=== PATIENT | female | born 1935 | race Caucasian/White ===

== ENCOUNTER 2017-07-28 08:48 | Inpatient (IN) | payer MEDICARE, OTHER ==
[~2017-07-28] VITALS: Ht 170.2 cm; Wt 81.6 kg
--- NOTE | 2017-07-28 09:40 | DIREP ---
PROCEDURE:CHEST 1 VIEW COMPARISON:None. INDICATIONS:medical clearance FOR [facility] FINDINGS: LUNGS/PLEURA:No significant pulmonary parenchymal abnormalities. No effusions. VASCULATURE:Normal. Unremarkable pulmonary vasculature. CARDIAC:Normal. No cardiac silhouette abnormality or cardiomegaly. MEDIASTINUM:Normal. No visible mass or adenopathy. BONES:There are remote and/or healing fractures of several right lower ribs. A dorsal column stimulator is seen with the tip in the midline of the mid thoracic spine. OTHER:Negative. CONCLUSION:No active or acute cardiopulmonary disease is seen. Dictated by: Ralph Harp M.D. on 07/28/2017 at 09:38 AM
[2017-07-28 09:44] LABS: BASOPHIL % 0.3 % (0.0-0.2); EOSINOPHIL # 0.6 10^3/uL (0.0-0.2); EOSINOPHIL % 8.4 % (0.0-5.0); HEMOGLOBIN 12.5 g/dL (12.0-15.0); LYMPHOCYTES # 1.3 10^3/uL (1.0-4.8); LYMPHOCYTES % 17.2 % (24.0-44.0); MEAN CELL HGB 26.9 pg (26-34); MEAN CORP VOLUME 89.7 fL (78-100); MONOCYTES # 0.6 10^3/uL (0.3-0.8); RED CELL DISTRIBUTION WIDTH 14.9 % (11.5-14.5); WHITE BLOOD CELL 7.6 10^3/uL (4.5-11.0)
--- NOTE | 2017-07-28 09:46 | PCM.EKG ---
[facility] Test Date: 2017-07-28 Test Time: 09:46:53 Pat Name: MIRI GUTIERREZ Department: Room: 212 Gender: F Magnetic Observer: AUBREY : 1935 Requested By: MOISÉS JUNIOR Order Number: [id number] Reading MD: Moisés JUNIOR Measurements Intervals [place] Rate: 90 P: 61 TN: 124 QRS: 60 QRSD: 76 T: 57 QT: 356 QTc: 435 Interpretive Statements Sinus rhythm with occasional premature ventricular complexes Otherwise normal ECG No previous ECG available for comparison Electronically Signed On 07-29-2017 5:55:29 CDT by Moisés JUNIOR Please click the below link to view image of tracing.
[2017-07-28] MEDS ORDERED: HALDOL ONE (09:47)
[2017-07-28] MEDS ORDERED: HALDOL IV STA (09:49)
[2017-07-28] MEDS ORDERED: ATIVAN IV STA (09:49)
[2017-07-28] MEDS ORDERED: ATIVAN ONE ×2 (09:49→20:03)
[2017-07-28] MEDS ORDERED: ATIVAN IM STA ×2 (09:55→10:41)
[2017-07-28] MEDS ORDERED: HALDOL IM STA ×2 (09:55→10:41)
--- NOTE | 2017-07-28 10:16 | ER.PDOC ---
General Chief Complaint: Medical Clearance Stated Complaint: MEDICAL CLEARANCE Time seen by MD: 10:14 Source: halfway records Exam Limitations: clinical condition History of Present Illness Initial Comments Medical clearance to go to [facility] for Depression and Psychosis Severity: moderate Associated Symptoms: Depressed, Agitated Allergies: Coded Allergies: Penicillins (Verified Allergy, Intermediate, rash, 07/28/17) Sulfa (Sulfonamide Antibiotics) (Verified Allergy, Intermediate, rash, ) Past Medical History Medical History: thyroid disease Social History Alcohol Use: none Drug Use: none Review of Systems Constitutional: no symptoms reported EENTM: no symptoms reported Respiratory: no symptoms reported Cardiovascular: no symptoms reported Gastrointestinal: no symptoms reported Psychiatric/Neurological: see HPI All Other Systems: Reviewed and Negative Physical Exam General Appearance: No acute distress, Alert EENT: No nystagmus, PERRLA, EOM's intact, NML ENT inspection, Pharynx nml, NML gag reflex Neck: Non-Tender, Full Range of Motion, Supple, Normal Inspection Respiratory: chest non-tender, lungs clear, normal breath sounds, no respiratory distress, no accessory muscle use Cardiovascular: Normal Peripheral Pulses, Regular Rate, Rhythm, No Edema, No Gallop, No JVD, No Murmur Gastrointestinal: Normal Bowel Sounds, No Organomegaly, No Pulsatile Mass, Non Tender, Soft Extremities: Non-Tender, Normal Range of Motion, No Evidence of Trauma, No Edema Neurological/Psychiatric: Alert, Depressed Affect Appearance/Memory/Insight: Appropriate Appearance Behavior/Eye Contact/Speech: Refused to Answer, Belligerent (and combative), Uncooperative Thoughts/Hallucinations: Normal Thought Pattern Skin: Normal Color Results/Orders Results/Orders Laboratory Tests Test 07/28/17 09:38 White Blood Count 7.6 10^3/uL (4.5-11.0) Red Blood Count 4.64 10^6/uL (4.00-5.20) Hemoglobin 12.5 g/dL (12.0-15.0) Hematocrit 41.6 % (36.0-46.0) Mean Corpuscular Volume 89.7 fL (78-100) Mean Corpuscular Hemoglobin 26.9 pg (26-34) Mean Corpuscular Hemoglobin Concent 30.0 g/dL (33-37) Red Cell Distribution Width 14.9 % (11.5-14.5) Platelet Count 361 10^3/uL (150-400) Mean Platelet Volume 10.0 fL (7.8-11.0) Neutrophils (%) (Auto) 66.0 % (41.0-85.0) Lymphocytes (%) (Auto) 17.2 % (24.0-44.0) Monocytes (%) (Auto) 8.0 % (5.0-12.0) Neutrophils # (Auto) 5.0 10^3/uL (1.8-7.7) Lymphocytes # (Auto) 1.3 10^3/uL (1.0-4.8) Monocytes # (Auto) 0.6 10^3/uL (0.3-0.8) Absolute Immature Granulocyte (auto 0.01 10^3 u/L (0-2) Eosinophils % 8.4 % (0.0-5.0) Basophils % 0.3 % (0.0-0.2) Basophils # 0.0 10^3/uL (0.0-0.1) Eosinophil Count 0.6 10^3/uL (0.0-0.2) Prothrombin Time 11.3 SEC (9.8-11.9) Prothrombin Time INR (Non-Therap) 1.1 Activated Partial Thromboplast Time 44.4 SEC (24.67-30.72) Sodium Level 145 mmol/L (132-145) Potassium Level 4.0 mmol/L (3.6-5.2) Chloride Level 107.0 mmol/L (96-109) Carbon Dioxide Level 27.6 mmol/L (20.0-32) Anion Gap 14.4 Blood Urea Nitrogen 24 mg/dL (7-18) Creatinine 0.64 mg/dL (0.59-1.40) Estimated GFR () 107.8 (>/=60) BUN/Creatinine Ratio 37.0 Glucose Level 111 mg/dL (70-110) Calcium Level 9.1 mg/dL (8.4-10.5) Total Bilirubin 0.2 mg/dL (0.2-1.0) Aspartate Amino Transf (AST/SGOT) 23 U/L (0-35) Alanine Aminotransferase (ALT/SGPT) 24 U/L (12-78) Alkaline Phosphatase 189 U/L (50-136) Total Creatine Kinase 44 U/L (26-192) Creatine Kinase MB 0.9 ng/mL (0.5-3.6) Troponin I 0.10 ng/mL (0.00-0.05) C-Reactive Protein 1.48 mg/dL (0.00-5.00) Pro-B-Type Natriuretic Peptide 199 pg/mL (0-450) Total Protein 6.7 g/dL (6.4-8.2) Albumin 2.8 g/dL (3.4-5.0) Globulin 3.9 Thyroid Stimulating Hormone (TSH) 0.009 mIU/mL (0.358-3.740) Percent Immature Gran (Cell Imm) 0.10 % (0.00-0.50) Administered Medications Medications (Trade) Dose Ordered Sig/Pablo Route PRN Reason Start Time Stop Time Status Last Admin Dose Admin Haloperidol Lactate (Haldol) 3 mg STAT STAT IM 07/28/17 09:55 07/28/17 09:57 DC 07/28/17 09:54 Lorazepam (Ativan) 1 mg STAT STAT IM 07/28/17 09:55 07/28/17 09:57 DC 07/28/17 09:54 Haloperidol Lactate (Haldol) 2 mg STAT STAT IM 07/28/17 10:41 07/28/17 10:44 DC 07/28/17 10:55 Lorazepam (Ativan) 1 mg STAT STAT IM 07/28/17 10:41 07/28/17 10:44 DC 07/28/17 10:55 EKG/XRAY/CT/US EKG: NSR XRAY: chest (No active disease) Departure Time of Disposition: 11:14 Disposition: 09 ADMITTED INPATIENT Impression: Primary Impression: Elevated troponin Additional Impressions: Depression Qualified Codes: F32.9 - Major depressive disorder, single episode, unspecified Psychosis Qualified Codes: F29 - Unspecified psychosis not due to a substance or known physiological condition Condition: Stable Referrals: PCP,UNKNOWN (PCP) PRIMARY CARE PROVIDER Comments Admitted to Dr. Benitez Duration or Time Spent with Pa: 60 mins MOISÉS JUNIOR MD Jul 28, 2017 10:16
[2017-07-28 10:25] LABS: CARBON DIOXIDE 27.6 mmol/L (20.0-32)
[2017-07-28 10:50] LABS: CALCIUM 9.1 mg/dL (8.4-10.5)
--- NOTE | 2017-07-28 11:17 | PRM.ACF1 ---
Date and Time Date and Time Time: 11:16 Admission Criteria Forms PSYCHIATRIC DISORDERS Clinical Indications for Inpatient Care ([place]/check the applicable condition/criteria) Ongoing inpatient care may be needed for 1 or more of the following(1)(2)(3)(4)( 6)(7)(8): [ x]I. Danger to self or others not manageable at lower level of care. [ ]II. Grave disability (eg, inability to perform self care necessary at lower level of care) [ ]III. Agitation or inappropriate behavior interfering with care for primary condition (eg, attempting to discontinue lines or drains prematurely, unable to cooperate with respiratory care) [ ]IV. Severe disability or disorder indicated by ALL of the following: [ ]a) Severe behavioral health disorder-related symptoms or condition indicated by 1 or more of the following: [ ]i) Severe problem with cognition, memory, judgment, or impulse control [ ]ii) Severe clinical manifestations (eg, hallucinations, delusions, other acute psychotic symptoms, jody, extreme agitation or anxiety) [ ]b) Patient management at lower level of care is not available or is not feasible until acute intervention or modification is initiated. Extended stay beyond goal length of stay for the primary condition may be needed until ALLof the following are present(1)(2)(3)(4)(722)(23): [ ]a) Danger to self or others is absent or manageable at lower level of care [ ]b) Behavior crisis management, including physical or chemical restraints, is required and is not available at a lower level of care. [ ]c) Behavioral symptoms (e.g., agitation, somnolence, inappropriate behavior) are present, and are not manageable at a lower level of care. [ ]d) Patient cannot understand follow-up treatment and crisis plan. [ ]e) Provider and supports are sufficiently available at lower level of care. [ ]f) Patient can participate (e.g., verify absence of plan for harm) and is in needed of monitoring. The original [facility] content created by [facility] has been revised. The portions of the content which have been revised are identified through the use of italic text or in bold, and [facility] has neither reviewed nor approved the modified material. All other unmodified content is copyright [facility]. Please see references footnoted in the original [facility] edition 2017 MOISÉS JUNIOR MD Jul 28, 2017 11:17
[2017-07-28] MEDS ORDERED: ASPIRIN PO STA (11:18)
[2017-07-28] MEDS ORDERED: ASPIRIN ONE (12:43)
[2017-07-28 13:53] VITALS: BP 135/78
[2017-07-28] MEDS ORDERED: ASPI-484 PO (14:14)
[2017-07-28] MEDS ORDERED: LORA2TAB PO (14:14)
[2017-07-28] MEDS ORDERED: OLAN10TA3 PO (14:14)
[2017-07-28] MEDS ORDERED: ACET325T12 PO (14:14)
[2017-07-28] MEDS ORDERED: SENN8.6T4 PO (14:14)
[2017-07-28] MEDS ORDERED: PARO10TA57 PO (14:14)
[2017-07-28] MEDS ORDERED: ROPI1TAB PO (14:14)
[2017-07-28] MEDS ORDERED: TRAM50TA PO (14:14)
[2017-07-28] MEDS ORDERED: MORP15TA3 PO (14:14)
[2017-07-28] MEDS ORDERED: DABI150C PO (14:14)
[2017-07-28] MEDS ORDERED: POTA10TA6 PO (14:14)
[2017-07-28] MEDS ORDERED: LORA1TAB PO ×2 (14:14)
[2017-07-28] MEDS ORDERED: GABA100C7 PO (14:14)
[2017-07-28] MEDS ORDERED: DIVA500T4 PO (14:14)
[2017-07-28] MEDS ORDERED: LEVO150T6 PO (14:14)
[2017-07-28] MEDS ORDERED: BUSP15TA PO (14:14)
[2017-07-28] MEDS ORDERED: OMEP20TA9 PO (14:14)
[2017-07-28] MEDS ORDERED: CIPR250T28 PO (14:14)
[2017-07-28] MEDS ORDERED: ZYPREXA ZYDIS PO SCH (14:30)
[2017-07-28] MEDS ORDERED: BUSPAR PO SCH (15:00)
[2017-07-28] MEDS ORDERED: HALDOL IM PRN (16:00)
[2017-07-28] MEDS ORDERED: HALDOL PO PRN (16:00)
[2017-07-28] MEDS ORDERED: LORAZEPAM IM PRN (16:00)
[2017-07-28] MEDS ORDERED: ATIVAN PO SCH ×2 (18:00→21:00)
[2017-07-28] MEDS: SENOKOT PO SCH (19:05)
[2017-07-28] MEDS: ULTRAM PO SCH ×2 (19:05→20:18)
[2017-07-28] MEDS: TYLENOL PO SCH ×2 (19:06→20:17)
[2017-07-28] MEDS ORDERED: KLOR-CON 10 PO ONE (20:01)
[2017-07-28] MEDS ORDERED: DEPAKOTE ER PO ONE (20:02)
[2017-07-28] MEDS: DEPAKOTE ER PO SCH (20:12)
[2017-07-28] MEDS: NEURONTIN PO SCH (20:12)
[2017-07-28] MEDS: REQUIP PO SCH (20:12)
[2017-07-28] MEDS: KLOR-CON 10 PO SCH (20:12)
[2017-07-28] MEDS: ATIVAN PO SCH (20:12)
[2017-07-28] MEDS: MS CONTIN PO SCH (20:35)
[2017-07-28] MEDS ORDERED: PAXIL PO SCH (21:00)
[2017-07-29] MEDS: SYNTHROID PO SCH (05:33)
--- NOTE | 2017-07-29 06:31 | PSYCH ---
DATE OF SERVICE: 07/28/2017 INITIAL PSYCHIATRIC HISTORY AND PHYSICAL CHIEF COMPLAINT: The patient was brought on emergency nursing home from [facility] in [place], [place]. The patient was having combative and aggressive behavior at the usp. The usp felt she was a threat to harming others due to her severe combative behavior. HISTORY OF PRESENT ILLNESS: The patient is an 81-year-old female with a history of Alzheimer dementia and severe medical issues. She was recently on hospice care for cardiac issues. She was taken off hospice care and sent to the [facility] for aggressive and combative behavior. Apparently, the patient has been hitting staff and threatening other residents at the nursing facility. The staff at the [facility] felt like they could not care for her due to her severe aggressive behavior. The patient was medically cleared in the [facility] ER earlier today. She was given Haldol 3 mg IM and lorazepam 1 mg IM at 10:00 a.m. She was given Haldol 2 mg IM and Ativan 1 mg IM at 10:44 a.m. due to continued aggressive behavior in the Emergency Room. The patient did get tired after both of these doses. The patient was unresponsive when she saw Dr. Bronson. She was lying comfortably in a chair. She had stable vital signs. She is reportedly very confused and not able to answer questions even when she is more awake. When she is more awake, she is also very aggressive and combative. She is also a falls risk. She is going to be placed on 1:1 monitoring to control combative behavior and her falls risk. The patient reportedly has odd and delusional thinking related to her severe dementia. She has a high anxiety level. She is not able to describe her mood. She is not able to voice suicidal or homicidal ideation. It is thought that she has been a threat to harming herself or others due to her severe combative behavior. She is not able to describe if she feels guilt. She has a poor concentration level. She has an extremely poor memory. She was not able to give any other symptoms during the interview. She possibly has auditory and visual hallucinations. She does have delusional thinking. She is not currently manic or hypomanic. PAST PSYCHIATRIC HISTORY: The patient has never been hospitalized for psychiatric reasons. She has been taking BuSpar, Depakote ER, Zyprexa, Paxil, and p.r.n. Ativan in the past. No other psychiatric history is able to be obtained at this time. PAST MEDICAL HISTORY: 1. History of cardiac issues. 2. AFib. 3. Hypothyroidism. 4. Chronic pain issues. 5. Low potassium. 6. Restless legs syndrome. ALLERGIES: 1. PENICILLIN. 2. SULFA DRUGS. FAMILY PSYCHIATRIC HISTORY: None reported. SOCIAL HISTORY: The patient was living at the [facility] in [place], [place]. She was recently on hospice care and taken off hospice care before being sent to this facility. She is not known to use alcohol, illicit drugs, or tobacco. She has a son that is supportive. She was not able to give any other social history. OBJECTIVE: VITAL SIGNS: Height is 67 inches, weight is 180 pounds, pulse is 106, respirations are 16, blood pressure 135/78 and O2 saturations 93% on room air. The patient was in no distress at the time of the interview. She does have a history of chronic pain issues. STRENGTHS: None. WEAKNESSES: Severe medical issues. Severe behavior problems. CURRENT MEDICATIONS: 1. BuSpar 15 mg p.o. t.i.d. 2. Depakote ER 500 mg p.o. at bedtime. 3. Gabapentin 100 mg p.o. b.i.d. 4. Levothyroxine 150 mcg p.o. daily. 5. MS Contin 15 mg p.o. b.i.d. 6. Zyprexa Zydis 10 mg p.o. daily. 7. Paxil 10 mg p.o. at bedtime. 8. Potassium 10 mEq p.o. b.i.d. 9. Requip 4 mg p.o. at bedtime. 10. Senokot 8.6 mg p.o. daily. 11. Tramadol 50 mg p.o. t.i.d. REVIEW OF SYSTEMS: CONSTITUTIONAL: Recent weight loss. Some fatigue. Some insomnia. NEUROLOGICAL: Some tremors. Some weakness. No dizziness. PSYCHIATRIC: Positive for depression. Positive for anxiety. Positive for psychosis. Positive for agitation. No crying spells. No jody. GASTROINTESTINAL: No nausea, vomiting, diarrhea or constipation reported. MUSCULOSKELETAL: No abnormal muscle movements. No musculoskeletal pain reported. She does have chronic pain issues. CARDIOVASCULAR: No chest palpitations. No chest pain. RESPIRATORY: No shortness of breath. No wheezing or coughing. EXTREMITIES: No swelling or edema. EYES: No recent changes in vision. EARS: No recent changes in hearing. ENDOCRINE: No heat or cold intolerance. Review of systems is otherwise negative and reviewed by Dr. Bronson. The patient was seen [id number] by Dr. Benitez who is monitoring her closely. MENTAL STATUS EXAMINATION: MUSCLE STRENGTH AND TONE: Decreased. GAIT AND STATION: Ataxic. APPEARANCE: Appears older than stated age. Low weight. Casual attire. ATTITUDE AND BEHAVIOR: Uncooperative. Poor eye contact. Psychomotor agitation. MOOD AND AFFECT: Mood is up and down. Affect is labile. ORIENTATION: Disoriented to person, place, time, and situation. ATTENTION/CONCENTRATION: Poor attention and poor concentration. SPEECH: Impaired. JUDGMENT/INSIGHT: Poor judgment and poor insight. THOUGHT PROCESS: Loose and tangential. LANGUAGE: Welsh. THOUGHT CONTENT: Negative for suicidal or homicidal ideation. Positive for auditory and visual hallucinations. Positive for delusions. FUND OF KNOWLEDGE: Poor. ASSOCIATIONS: Loose associations. MEMORY: Recent and remote memory are both impaired. ASSESSMENT: Delusional disorder; generalized anxiety disorder; depression; Alzheimer type dementia with behavior disturbance. TREATMENT PLAN: 1. The patient will be an involuntary admission at the [facility]. The patient will be monitored closely for behaviors. The patient will be on 1:1 monitoring for combative behavior and falls risk. 2. The patient will be followed closely by Dr. Benitez. Dr. Bronson to discuss the patient with Dr. Benitez. 3. The patient will have her BuSpar discontinued. She will have her Paxil discontinued. She will continue on Depakote ER 500 mg p.o. at bedtime and gabapentin 100 mg p.o. b.i.d. She will continue on Zyprexa Zydis 10 mg p.o. daily. She will be started on Haldol 2 mg p.o. or IM q.4 hours p.r.n. psychosis and Ativan 1 mg IM q.6 hours p.r.n. anxiety. She will be given scheduled lorazepam 1 mg p.o. t.i.d. 4. Social work will work with the family on placement issues. The patient is very fragile medical donis. She is on a DNR status. Palmira Bronson IV MD DR: Bob JOB# [id number]
[2017-07-29 07:42] VITALS: BP 132/67
[2017-07-29] MEDS: KLOR-CON 10 PO SCH ×2 (09:27→20:43)
[2017-07-29] MEDS: NEURONTIN PO SCH ×2 (09:27→20:42)
[2017-07-29] MEDS: ASPIRIN EC PO SCH (09:27)
[2017-07-29] MEDS: MS CONTIN PO SCH ×2 (09:28→20:42)
[2017-07-29] MEDS: TYLENOL PO SCH ×3 (09:28→20:42)
[2017-07-29] MEDS: ATIVAN PO SCH ×3 (09:29→20:43)
[2017-07-29] MEDS: ZYPREXA ZYDIS PO SCH (09:29)
[2017-07-29] MEDS: ULTRAM PO SCH ×3 (09:29→20:42)
--- NOTE | 2017-07-29 09:54 | PRM.PN ---
Mood: UP AND DOWN, NOT ABLE TO DESCRIBE HER MOOD Sleep: SLEEP IS OK AT NIGHT Appetite: POOR APPETITE Suidical thoughts: NONE REPORTED Homicidal thoughts: NONE REPORTED Recent stressors: STRESS OF MENTAL ILLNESS Family support: LIMITED Aggressive Behavior: GETS ANGRY WITH ADLS, BUT REDIRECTABLE FROM STAFF Ability to Perform ADL'sc: NEEDS ASSISTANCE Psychotic sympstoms: DELUSIONAL THINKING RELATED TO DEMENTIA Manic Symptoms: NONE REPORTED Living situation: WAS LIVING AT SNF Illicit Drug usec: NONE REPORTED Alcoholo use: NONE REPORTED Tobacco use: NONE REPORTED Family,PT,Surgical,&Current HX: Anxity Symptoms: MODERATE ANXIETY LEVEL Anger/Irritablility: SOME ANGER AND IRRITABILITY Muscle Strength & Tone: WNL Gait & Station: Ataxic Appearance: Appears older, Well groomed/hygience, Casual attire, Normal weight Attitude & Behaviour: Uncooperative, Poor eye contact, Psychomotor agitation Mood & Affect: Iabile, Blunted, Angry Orientation: Disoriented to place, Disoriented to time, Disoriented to situation Attention/Concentration: Poor attention, Poor concentration Speech: Impaired Judgement/Insight: Poor judgement, Poor insight Thought Process: Loose, Tangential Language: Cook Islander Thought content/Abnormal/Psych: Delusions Fund of Knowledge: Other Associations: DUSTIN Memory (recent and remote): Recent memory repaired, Remote memory repaired Constitutional: None Neurological: None Psychiatric: Depressed, Anxious, Psychosis [place] I: DELUSIONAL DISORDER, PSYCHOSIS, DEPRESSION, ANXIETY, DEMENTIA [place] II: DEFERRED [place] III: REFER TO PMH/MEDICAL CHART [place] IV: STRESS OF MENTAL ILLNESS [place] V: GAF=25 Assessment/Plan Assessment/Plan Assessment/Plan THE PATIENT WAS SEEN BY DR. DAVIS FACE TO FACE ALONG WITH THE TREATMENT TEAM. THE PATIENT'S VITAL SIGNS WERE: ZH=123/67, PULSE=67, RESP.=16, O2 SAT WAS 92% ON RA, TEMP.=98.8. THE PATIENT'S MOOD IS UP AND DOWN. SHE YELLS AND SCREAMS AT STAFF. SHE YELLS "HELP" A LOT. SHE PERSEVERATES ON CERTAIN IDEAS. SHE WILL THROW HER FOOD AT STAFF. THE PATIENT IS ON 1:1 MONITORING FOR FALLS RISK AND COMBATIVE BEHAVIOR. THE PATIENT IS NOT ABLE TO ANSWER QUESTIONS VERY WELL. THE PATIENT SLEPT 7.75 HOURS LAST NIGHT. THE PATIENT HAS NOT BEEN EATING VERY WELL. SHE HAS BEEN DRINKING. WE ARE TRYING TO GIVE HER BOOST SHAKES. THE PATIENT WAS ABLE TO STATE HER NAME. THE PATIENT IS DISORIENTED TO PLACE, TIME, AND SITUATION. THE PATIENT WOULD NOT ANSWER QUESTIONS ASKED TO HER. SHE TALKS CONSTANTLY ABOUT THINGS THAT DON'T MAKE SENSE. SHE REFUSES HER MEDICATIONS A LOT. SHE WAS ON HOSPICE CARE. THE PATIENT NEEDS TO BE BACK ON HOSPICE CARE. THE PATIENT HAS ODD AND DELUSIONAL THINKING. THE PATIENT HAS PARANOIA. THE PATIENT IS NOT COOPERATIVE WITH STAFF. THE PATIENT APPEARS TO BE SHOWING END OF LIFE BEHAVIOR PROBLEMS. ASSESSMENT: DELUSIONAL DISORDER; PSYCHOSIS; DEMENTIA WITH BEHAVIOR PROBLEMS; GENERALIZED ANXIETY DISORDER PLAN: 1) PLAN TO DISCHARGE BACK TO THE SNF ON HOSPICE CARE. 2) CONTINUE CURRENT MEDICATIONS. STAFF AGREEABLE WITH THE PLAN. SUPPORTIVE THERAPY GIVEN. THE PATIENT DENIES SI OR HI. SAFETY PLANS WERE DISCUSSED. 20 MINUTES SPENT IN SUPPORTIVE THERAPY AND DISCHARGE PLANNING. Problems: (1) Psychosis Status: Acute ICD Code: F29 - Unspecified psychosis not due to a substance or known physiological condition SNOMED: 57500695 (2) Depression Status: Acute ICD Code: F32.9 - Major depressive disorder, single episode, unspecified SNOMED: 53958180 Patient History: Problem Qualifiers (1) Psychosis: Psychosis type: unspecified psychosis type Qualified Codes: F29 - Unspecified psychosis not due to a substance or known physiological condition (2) Depression: Depression Type: unspecified Qualified Codes: F32.9 - Major depressive disorder, single episode, unspecified ANABEL DAVIS IV, MD Jul 29, 2017 09:54
[2017-07-29] MEDS ORDERED: LORA-448 PO (10:05)
[2017-07-29] MEDS ORDERED: HALO5VIA2 IM (10:05)
[2017-07-29] MEDS ORDERED: HALO1TAB PO (10:05)
[2017-07-29] MEDS ORDERED: LORA2VIA IM (10:05)
[2017-07-29] MEDS: SENOKOT PO SCH (15:19)
[2017-07-29 19:42] VITALS: BP 112/64
[2017-07-29] MEDS: REQUIP PO SCH (20:40)
[2017-07-29] MEDS: DEPAKOTE ER PO SCH (20:43)
[2017-07-30] MEDS: SYNTHROID PO SCH (05:39)
[2017-07-30 08:21] VITALS: BP 121/68
[2017-07-30] MEDS: NEURONTIN PO SCH ×2 (08:30→20:56)
[2017-07-30] MEDS: ASPIRIN EC PO SCH (08:31)
[2017-07-30] MEDS: KLOR-CON 10 PO SCH ×2 (08:31→20:57)
[2017-07-30] MEDS: TYLENOL PO SCH ×3 (08:32→20:57)
[2017-07-30] MEDS: ATIVAN PO SCH ×3 (08:33→20:56)
[2017-07-30] MEDS: ZYPREXA ZYDIS PO SCH (08:33)
[2017-07-30] MEDS: ULTRAM PO SCH ×3 (08:33→19:05)
[2017-07-30] MEDS: MS CONTIN PO SCH ×2 (08:34→20:55)
[2017-07-30] MEDS: SENOKOT PO SCH (14:50)
[2017-07-30 19:52] VITALS: BP 150/74
[2017-07-30] MEDS: DEPAKOTE ER PO SCH (20:56)
[2017-07-30] MEDS: REQUIP PO SCH (20:56)
[2017-07-31] MEDS: SYNTHROID PO SCH (05:43)
[2017-07-31 07:23] VITALS: BP 153/73
[2017-07-31] MEDS: MS CONTIN PO SCH ×2 (08:42→21:17)
[2017-07-31] MEDS: NEURONTIN PO SCH ×2 (08:43→21:18)
[2017-07-31] MEDS: ULTRAM PO SCH ×3 (08:43→21:17)
[2017-07-31] MEDS: ASPIRIN EC PO SCH (08:43)
[2017-07-31] MEDS: ZYPREXA ZYDIS PO SCH (08:43)
[2017-07-31] MEDS: KLOR-CON 10 PO SCH ×2 (08:44→21:18)
[2017-07-31] MEDS: TYLENOL PO SCH ×3 (08:44→21:18)
--- NOTE | 2017-07-31 08:44 | PRM.PN ---
Mood: UP AND DOWN, NOT ABLE TO DESCRIBE HER MOOD Sleep: SLEEPING WELL AT NIGHT, SLEPT 8 HOURS LAST NIGHT Appetite: POOR APPETITE, NOT SLEEPING AND EATING WELL Suidical thoughts: NONE REPORTED Homicidal thoughts: NONE REPORTED Recent stressors: STRESS OF MENTAL ILLNESS Family support: LIMITED Aggressive Behavior: LIMITED AGGRESSIVE BEHAVIOR Ability to Perform ADL'sc: NEEDS FULL ASSISTANCE Psychotic sympstoms: DELUSIONAL THINKING RELATED TO DEMENTIA Manic Symptoms: NONE REPORTED Living situation: LIVING AT [facility] Illicit Drug usec: NONE REPORTED Alcoholo use: NONE REPORTED Tobacco use: NONE REPORTED Family,PT,Surgical,&Current HX: Anxity Symptoms: MODERATE ANXIETY LEVEL Anger/Irritablility: SOME ANGER AND IRRITABILITY Muscle Strength & Tone: WNL Gait & Station: Ataxic Appearance: Appears older, Well groomed/hygience, Casual attire, Normal weight Attitude & Behaviour: Uncooperative, Poor eye contact Mood & Affect: Iabile, Blunted, Depressed Orientation: Disoriented to person, Disoriented to place, Disoriented to time, Disoriented to situation Attention/Concentration: Poor attention, Poor concentration Speech: Impaired Judgement/Insight: Poor judgement, Poor insight Thought Process: Loose, Tangential Language: Romanian Thought content/Abnormal/Psych: Delusions Fund of Knowledge: Other Associations: DUSTIN Memory (recent and remote): Recent memory repaired, Remote memory repaired Constitutional: Fatigue Neurological: Weakness Psychiatric: Depressed, Anxious, Psychosis [place] I: DELUSIONAL DISORDER, DEPRESSION, ANXIETY, DEMENTIA [place] II: DEFERRED [place] III: REFER TO PMH/MEDICAL CHART [place] IV: STRESS OF MENTAL ILLNESS, STRESS OF PHYSICAL ISSUES [place] V: GAF=25 Assessment/Plan Assessment/Plan Assessment/Plan THE PATIENT WAS SEEN BY DR. DAVIS VIA TELEMEDICINE EQUIPMENT (VSEE) ALONG WITH NURSING STAFF. THE PATIENT'S VITAL SIGNS WERE: RG=292/73, PULSE=95, RESP.=16, TEMP.=98.0, O2 SAT WAS 94% ON RA. THE PATIENT HAS NOT BEEN EATING VERY WELL. STAFF HAS TRIED TO GET HER TO EAT. THE PATIENT HAS NOT BEEN DRINKING VERY MUCH. THE PATIENT REFUSES HER MEDICATIONS SOMETIMES. THE PATIENT HAS AN IRREGULAR BREATHING PATTERN. THE PATIENT DID NOT RECEIVE HER SCHEDULE AFTERNOON ATIVAN YESTERDAY. THE PATIENT HAS BEEN SLEEPING OK. THE PATIENT SLEPT 8 HOURS LAST NIGHT. THE PATIENT NEEDS 1:1 MONITORING FOR BEING A FALLS RISK. THE PATIENT HAS NOT SHOWN AGGRESSIVE BEHAVIOR. SHE IS ABLE TO BE REDIRECTED BY STAFF. THE PATIENT APPEARS TO BE IN PHYSICAL PAIN. THE PATIENT IS CONFUSED. SHE IS NOT ABLE TO ANSWER QUESTIONS VERY WELL. THE PATIENT IS DISORIENTED TO PERSON, PLACE , TIME, AND SITUATION. THE PATIENT MUMBLES WHEN SHE TALKS. SHE HAS BEEN GROANING AND YELLING OUT SOME. THE PATIENT GETS IRRITABLE WHEN STAFF GIVES HER PERSONAL CARE. THE PATIENT SEEMS TO BE DECLINING PHYSICALLY. ASSESSMENT: DELUSIONAL DISORDER, PSYCHOSIS, DEPRESSION, GENERALIZED ANXIETY DISORDER, DEMENTIA WITH BEHAVIOR PROBLEMS PLAN: 1) PLAN TO DISCHARGE BACK TO NURSING FACILITY ON HOSPICE ON THURSDAY. 2) CONTINUE CURRENT MEDICATIONS. STAFF AGREEABLE WITH THE PLAN. SUPPORTIVE THERAPY GIVEN. THE PATIENT DENIES SI OR HI. SAFETY PLANS WERE DISCUSSED. DR. DAVIS SPOKE WITH THE [facility] STAFF ABOUT THE SITUATION. 20 MINUTES IN SUPPORTIVE THERAPY, MEDICATION EDUCATION, AND DISCHARGE PLANNING. Problems: (1) Depression Status: Acute ICD Code: F32.9 - Major depressive disorder, single episode, unspecified SNOMED: 43548804 (2) Psychosis Status: Acute ICD Code: F29 - Unspecified psychosis not due to a substance or known physiological condition SNOMED: [id number] Patient History: Problem Qualifiers (1) Depression: Depression Type: unspecified Qualified Codes: F32.9 - Major depressive disorder, single episode, unspecified (2) Psychosis: Psychosis type: unspecified psychosis type Qualified Codes: F29 - Unspecified psychosis not due to a substance or known physiological condition ANABEL DAVIS IV, MD Jul 31, 2017 08:44
[2017-07-31] MEDS: ATIVAN PO SCH ×3 (09:00→21:00)
[2017-07-31] MEDS: SENOKOT PO SCH (15:05)
[2017-07-31 16:50] VITALS: BP 110/79
[2017-07-31] MEDS: REQUIP PO SCH (21:17)
[2017-07-31] MEDS: DEPAKOTE ER PO SCH (21:18)
[2017-08-01] MEDS: SYNTHROID PO SCH (06:07)
[2017-08-01] MEDS: ATIVAN PO SCH (07:21)
[2017-08-01] MEDS: MS CONTIN PO SCH (07:22)
[2017-08-01] MEDS: ULTRAM PO SCH (07:31)
[2017-08-01 08:54] VITALS: BP 100/84
[2017-08-01] MEDS: TYLENOL PO SCH (09:00)
[2017-08-01] MEDS: KLOR-CON 10 PO SCH (09:00)
[2017-08-01] MEDS: ASPIRIN EC PO SCH (09:00)
[2017-08-01] MEDS: NEURONTIN PO SCH (09:00)
[2017-08-01] MEDS: ZYPREXA ZYDIS PO SCH (09:00)
--- NOTE | 2017-08-01 10:08 | PRM.PN ---
Mood: UP AND DOWN, NOT ABLE TO VERBALIZE HER MOOD Sleep: SLEEPING AT NIGHT AND DURING THE DAY Appetite: SHE IS NOT EATING OR DRINKING VERY MUCH Suidical thoughts: NONE REPORTED Homicidal thoughts: NONE REPORTED Recent stressors: STRESS OF END OF LIFE ISSUES Family support: SON Aggressive Behavior: LIMITED AGGRESSIVE BEHAVIOR, GETS IRRITABLE SOMETIMES WHEN DOING ADLS Ability to Perform ADL'sc: NOT ABLE TO PERFORM ADLS Psychotic sympstoms: DELUSIONAL THINKING RELATED TO DEMENTIA AND END OF LIFE Manic Symptoms: NONE REPORTED Living situation: WAS LIVING AT A LONG-TERM, RECENTLY ON HOSPICE Illicit Drug usec: NONE REPORTED Alcoholo use: NONE REPORTED Tobacco use: NONE REPORTED Family,PT,Surgical,&Current HX: Anxity Symptoms: MODERATE ANXIETY LEVEL Anger/Irritablility: LIMITED ANGER AND IRRITABILITY Muscle Strength & Tone: WNL Gait & Station: Ataxic Appearance: Appears older, Casual attire, Normal weight Attitude & Behaviour: Uncooperative, Poor eye contact, Psychomotor retardation Mood & Affect: Iabile, Blunted Orientation: Disoriented to person, Disoriented to place, Disoriented to time, Disoriented to situation Attention/Concentration: Poor attention, Poor concentration Speech: Impaired Judgement/Insight: Poor judgement, Poor insight Thought Process: Loose, Tangential Language: Danish Thought content/Abnormal/Psych: Delusions Fund of Knowledge: Other Associations: DUSTIN Memory (recent and remote): Recent memory repaired, Remote memory repaired Constitutional: None Neurological: Weakness Psychiatric: Depressed, Anxious, Psychosis [place] I: DELUSIONAL DISORDER, PSYCHOSIS, DEPRESSION, DEMENTIA, ANXIETY [place] II: DEFERRED [place] III: REFER TO PMH/MEDICAL CHART [place] IV: STRESS OF MENTAL ILLNESS, END OF LIFE ISSUES [place] V: GAF=25 Assessment/Plan Assessment/Plan Assessment/Plan THE PATIENT WAS SEEN BY DR. DAVIS VIA TELEMEDICINE EQUIPMENT (VSEE) ALONG WITH NURSING STAFF. THE PATIENT'S VITAL SIGNS WERE: TEMP.=98.3, PULSE=65, RESP.=16, AT=833/84, O2 SAT WAS 93% ON RA. THE PATIENT CONTINUES TO DECLINE PHYSICALLY. SHE SLEEPS FOR A LOT OF THE DAY. THE PATIENT TRIES TO GET OUT OF HER CHAIR AND NEEDS 1:1 MONITORING TO KEEP HER IN HER CHAIR. SHE GETS IRRITABLE WHEN STAFF TRIES TO HELP HER WITH ADLS. SHE IS RE-DIRECTABLE. THE PATIENT IS EATING AND DRINKING POORLY. SHE HAS BEEN TAKING SMALL SIPS OF WATER. SHE ATE A FEW BITES OF FOOD THIS MORNING. SHE HAS VOIDED FOUR TIMES IN THE PAST 24 HOURS. SHE APPEARS TO BE IN PAIN. SHE MOANS AND YELLS SOMETIMES. THE PATIENT HAS PERIODS WHERE SHE STOPS BREATHING. THE PATIENT SLEPT 7.75 HOURS LAST NIGHT. THE PATIENT IS NOT ALWAYS TAKING HER MEDICATIONS. ASSESSMENT: DELUSIONAL DISORDER; PSYCHOSIS, DEMENTIA WITH BEHAVIOR PROBLEMS, GENERALIZED ANXIETY DISORDER PLAN: 1) TRANSFER THE PATIENT TO THE MEDICAL FLOOR. THE PATIENT NEEDS TO BE PLACED ON HOSPICE SERVICES. SHE SEEMS TO BE AT THE END OF LIFE. 2) CONTINUE CURRENT MEDICATIONS. STAFF AGREEABLE WITH THE PLAN. SUPPORTIVE THERAPY GIVEN. THE PATIENT IS NOT HAVING SI OR HI. SAFETY PLANS WERE DISCUSSED. DISCHARGE PLANNING DISCUSSED WITH DR. SAPP. 16 MINUTES SPENT IN SUPPORTIVE THERAPY, DISCHARGE PLANNING, AND MEDICATION EDUCATION. Problems: (1) Depression Status: Acute ICD Code: F32.9 - Major depressive disorder, single episode, unspecified SNOMED: 43586201 (2) Psychosis Status: Acute ICD Code: F29 - Unspecified psychosis not due to a substance or known physiological condition SNOMED: 65501762 Patient History: Problem Qualifiers (1) Depression: Depression Type: unspecified Qualified Codes: F32.9 - Major depressive disorder, single episode, unspecified (2) Psychosis: Psychosis type: unspecified psychosis type Qualified Codes: F29 - Unspecified psychosis not due to a substance or known physiological condition ANABEL DAVIS IV, MD Aug 01, 2017 10:08
[2017-08-01 12:40] VITALS: BP 119/70
--- NOTE | 2017-08-01 21:29 | DSH ---
DATE OF DISCHARGE: 08/01/2017 HOSPITAL COURSE: The patient was an involuntary admission to the [facility] for aggressive behavior at the snf. She was at a snf in [place] and reportedly having very aggressive and agitated behavior towards staff. She was aggressive when they are trying to do activities of daily living with her. The patient was on hospice for a week and then taken off hospice to be sent to the [facility]. The patient has not shown very many behavior problems. She has seemed to decline physically. Her breathing has become irregular. She has not required any p.r.n. medications. She sometimes skips medicines due to her being too tired. She seems appropriate for hospice care. Dr. Bronson spoke with Dr. Isbell, who was agreeable to taking the patient to the medical floor and watching her and placing her on hospice. DISCHARGE DIAGNOSES: Delusional disorder; dementia with behavior disturbance; depression; generalized anxiety disorder. DISCHARGE PLAN: 1. The patient is being discharged to the medical floor under the care of Dr. Isbell. The patient will be watched and managed for end of life care. The patient needs a hospice referral. 2. Medication management will be deferred to Dr. Isbell. The patient has not been a behavior problem recently. The patient does require 1:1 monitoring as she tries to get out of her chair when she is awake. She is asleep a lot of the time. Palmira Bronson IV MD DR: /maritza JOB# [id number]
--- NOTE | 2017-08-21 06:16 | CNH ---
DATE OF CONSULTATION: 07/28/2017 CONSULT HISTORY AND PHYSICAL REFERRING PHYSICIAN: Dr. Bronson with Psychiatry. REASON FOR CONSULTATION: Medical management of multiple medical problems. HISTORY OF PRESENT ILLNESS: This patient is an 81-year-old woman with a past medical history significant for coronary artery disease, chronic atrial fibrillation, hypothyroidism, chronic pain, restless legs syndrome with probably some vascular dementia. She was admitted to the [facility] Unit from [facility] [place]. She was reportedly combative and aggressive. At time of exam, she was cooperative. There was no evidence of being combative during my exam. She is admitted to the Geropsychiatric Unit by Psychiatry. Reportedly, she had been on hospice at one point and this was revoked. She has relatively poor functional status. No known recent falls. She denies any pain, but otherwise history is difficult due to probably some mild dementia. PAST MEDICAL HISTORY: Includes coronary artery disease, chronic atrial fibrillation, hypothyroidism, chronic pain, chronic asthenia and restless legs syndrome. PAST SURGICAL HISTORY: At time of exam was unknown. ALLERGIES: ALLERGIC TO PENICILLIN AND SULFA. REPORTED HOME MEDICATIONS: At the [facility] included aspirin 81 mg daily, gabapentin 100 mg twice a day, levothyroxine 150 mcg daily, morphine 15 mg twice a day, omeprazole 20 mg daily, potassium 10 mEq b.i.d., ropinirole 4 mg at night, tramadol p.r.n. for pain. She is also on several psychiatric medications. SOCIAL HISTORY: She is a resident of a [facility]. No alcohol, tobacco or illicit drug use history recently. FAMILY HISTORY: Negative for early coronary artery disease or diabetes. REVIEW OF SYSTEMS: Difficult to obtain due to his dementia and probably some mild psychosis. PHYSICAL EXAMINATION: INITIAL VITAL SIGNS: Upon arrival, height 170.2 cm, weight 81.6 kilograms, temperature 98.8, pulse 67, respiratory rate 16, blood pressure is 132/67, O2 saturation 92% on room air. GENERAL: She is alert, oriented x 1 at time of exam. No acute distress. HEENT: Pupils equal, round, reactive to light. Sclerae are anicteric. Oropharynx is clear. Mucous membranes are slightly dry. NECK: Supple, no lymphadenopathy. CARDIOVASCULAR: At time of exam was regular rate and rhythm. LUNGS: Clear bilaterally. No wheezing, shallow inspiratory effort. ABDOMEN: Soft. Bowel sounds are present, nontender to palpation. EXTREMITIES: No cyanosis, clubbing or significant edema. NEUROLOGIC: At time of exam is grossly nonfocal. LABORATORY DATA: CBC: White count 7.6, hemoglobin 12.5, platelets 361. Differential: 66% neutrophils, 17% lymphocytes, 8% monocytes. Sodium 145, potassium 4.0, chloride 107, CO2 is 27, BUN 24, creatinine 0.6, glucose 111, calcium is 9.1, total bilirubin 0.2, AST 23, ALT 24, alkaline phosphatase 189, total CK is 44, CK-MB 0.9, troponin I is 0.1, repeat is less than 0.02. C-reactive protein 1.48. ProBNP 199, total protein 6.7, albumin 2.8, TSH is 0.009 with a free T4 of 1.79. ASSESSMENT AND PLAN: The patient is an 81-year-old woman admitted to Geropsych Unit with dementia with aggressive behavior, here with hypertension, coronary artery disease, chronic atrial fibrillation, vascular dementia, chronic pain with opiate dependence. 1. We will continue current cardiovascular medications. 2. Continue pain medications. 3. Fall precautions. 4. Diet as tolerated. 5. She has some mild dehydration. Encourage oral fluid hydration. Time spent on 07/28/2017 is 45 minutes. Thank you very much for this consult. We will follow with you. Kole Benitez MD DR: BLAKE/maritza JOB# [id number]
== END 2017-08-01 13:45 | disposition short-term general hospital (02) | DRG 885 ==
LOC: ER 08:48 → EEVIPCON 11:26 → UNDOADMIN 11:26 → MS 11:26 → GP 12:41
PROVIDERS: ADMIT Psychiatry & Neurology Psychiatry; ATTEND Psychiatry & Neurology Psychiatry
DX: F29 Unspecified psychosis not due to a substance or known physiological condition (principal); F02.81 Dementia in other diseases classified elsewhere, unspecified severity, with behavioral disturbance; E44.0 Moderate protein-calorie malnutrition; F22 Delusional disorders; G30.9 Alzheimer's disease, unspecified; I48.91 Unspecified atrial fibrillation; E03.9 Hypothyroidism, unspecified; F32.9 Major depressive disorder, single episode, unspecified; F41.1 Generalized anxiety disorder; G25.81 Restless legs syndrome; Z66 Do not resuscitate; G89.29 Other chronic pain; Z51.5 Encounter for palliative care; Z88.0 Allergy status to penicillin; Z88.2 Allergy status to sulfonamides; Z79.899 Other long term (current) drug therapy
CPT/HCPCS: 36415; 71045; 80053; 80061; 82550; 82553; 83036; 83880; 84439; 84443; 84484; 85025; 85610; 85730; 86140; 93005; 96372; 97150; 97166; 99285; J2060; J3480; J3490; G8987; G8988-CL; J1630

== ENCOUNTER 2017-08-01 14:00 | Inpatient (IN) | payer MEDICARE ==
[~2017-08-01] VITALS: Ht 172.7 cm; Wt 51.3 kg
[2017-08-01 14:00] VITALS: BP 109/58
[~2017-08-01 14:00] MED LIST: ACET325T12 PO; ASPI-484 PO; BUSP15TA PO; CIPR250T28 PO; DABI150C PO; DIVA500T4 PO; GABA100C7 PO; HALO1TAB PO; HALO5VIA2 IM; LEVO150T6 PO; LORA-448 PO; LORA1TAB PO; LORA2TAB PO; LORA2VIA IM; MORP15TA3 PO; OLAN10TA3 PO; OMEP20TA9 PO; PARO10TA57 PO; POTA10TA6 PO; ROPI1TAB PO; SENN8.6T4 PO; TRAM50TA PO
--- NOTE | 2017-08-01 14:30 | NUR ---
ARRIVAL Pt ARRIVED TO THE UNIT FROM BEHAVIORAL HEALTH UNIT ASSISTED BY NURSE KAILEE SHOOK IN [facility], FOR DECLINING MEDICAL CONDITION. REPORT RECEIVED FROM NURSE KAILEE SHOOK, STATES THAT SON NEEDS TO CONFIRM FOR THE Pt THAT WHICH HOSPICE THE PT NEEDS TO GO, WAITING FOR THE ARRIVAL OF SON. PY Pt ALERT LETHARGIC, UNABLE TO STATE ANY MEDICAL HSITORY, Pt DIAGNOSIS OF ENDSTAGE DEMENTIA. NURSE RAMSEY SHOOK INITIATED. IV 22 G TO THE R HAND INSERTED BY NURSE SRA SHOOK, [address] BUTTS INSERTED 100 CC YELLOW URIN COLLECTED IN ABREU OLIVE ASEPTIC TECHNIQUE , CHANGE NURSE MAEVE RN, V/S DOCUMENTED IN INTERVENTION COLUMN. WILL CONTINUE TO MONITOR CALL LIGHT IN REACH, BED IN LOW POSITION, Pt UNABLE TO COMPREHEND DUE TO END STAGE DEMENTIA.
--- NOTE | 2017-08-01 14:38 | NUR ---
CONSULT: SW SPOKE TO [facility] RN WHO INFORMED THIS WORKER THAT PT IS TO BE TRANSFERRED TO THE MEDICAL FLOOR AND FAMILY NEEDS TO CHOOSE HOSPICE AGENCY THEY WOULD LIKE TO USE. SW SPOKE TO SON YESTERDAY WHO INFORMED THIS WORKER THAT HE PLANS TO COME SEE HIS MOTHER TODAY FOR WHICH THIS WORKER WILL ASSIST WITH A CHOICE LETTER ONCE HE ARRIVES. SS TO FOLLOW.
[2017-08-01] MEDS: ATIVAN IV PRN ×2 (14:51→19:47)
[2017-08-01] MEDS: MORPHINE SULFATE IV PRN ×2 (14:51→19:47)
--- NOTE | 2017-08-01 14:51 | NUR ---
Pt AGITATED AND TRIED TO PULL ABREU AND IV, TRY TO ROLL OUT OF BED NOTIFIED DR. SAPP ADMINISTERED MORPHINE 2 MG IV AND ATIVAN .5 MG BY CHARGE NURSE MAEVE GARCIA.
[2017-08-01 15:53] VITALS: BP 109/58
--- NOTE | 2017-08-01 16:53 | HPH ---
ADMIT DATE: 08/01/2017 The patient is being admitted from the [facility]. ADMITTING DIAGNOSES: Advanced dementia with behavioral disturbances with malnutrition due to poor p.o. intake with hypothyroidism. CHIEF COMPLAINT: Her condition is worsening in the [place]. HISTORY OF PRESENT ILLNESS: This patient is an 81-year-old female who was originally admitted to the [facility] for depression and dementia with behavioral disturbances and psychosis. During her stay in [facility], it has been a steady decline. She has quit eating and drinking. She is sleeping most of the time. 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 So, at this time, we are admitting her to Med/Surg. We will get an IV and start her on some IV medications to calm her down and get hospice involved. PAST MEDICAL HISTORY: Significant for hypothyroidism, dementia and psychosis. ALLERGIES: PENICILLIN AND SULFA. MEDICATIONS: She has been on levothyroxine 150 mcg, but I see that her TSH was very low and free T4 was elevated. She is on some psychotropic medications, but she refuses to take any p.o. SOCIAL HISTORY: She does not smoke. No illicit drugs, no alcohol reported. FAMILY HISTORY: Asked and noncontributory for this admission. PHYSICAL EXAMINATION: My physical exam is as follows: GENERAL: She arouses easily and she gets combative. HEENT: Her oropharynx is dry. NECK: Supple. HEART: S1, S2 audible. No tachycardia. LUNGS: Clear. ABDOMEN: Good bowel sounds, soft abdomen, no masses. EXTREMITIES: No edema noted. ASSESSMENT: My assessment is we have this 81-year-old female with advanced and worsening dementia with behavioral disturbances along with some hypothyroidism. I will go ahead and give her some morphine and Ativan for some pain and agitation. I will talk to family about hospice care and follow her clinically in the hospital. I will restart her back on her levothyroxine at a smaller dose at 100 mcg a day. Wendy Isbell MD DR: SHARI/maritza JOB# [id number]
--- NOTE | 2017-08-01 17:31 | NUR ---
FAMILY CONTACT: SW SPOKE TO SON FOR HOSPICE CHOICE. SON CHOSE [facility] THE [facility] REFLECTED ON CHOICE LETTER IN CHART. REQUIRED DOCUMENTS FAXED. PENDING ACCEPTANCE. PT WILL DISCHARGE BACK TO [facility] IN [place] 08/03/17 REFLECTED IN [facility] NOTES. PLEASE CONTACT TRINIDAD KEYANA CAMPBELL @ [phone] AND/OR FIDEL, TECHNOLOGY PROGRAM MANAGER @[phone] FOR DISCHARGE REPORT AND TIME OF TRANSPORT. Addendum: 08/01/17 at 1748 by MAKENZIE Warner FAMILY INFORMED THIS WORKER THAT IF SHE PASSES AWAY BEFORE THURSDAY THEY HAVE EVERYTHING SET UP WITH [facility]. INFORMATION PROVIDED TO JOSE MCFARLANE. Addendum: 08/01/17 at 1810 by MAKENZIE Warner TRINIDAD RECEIVED CALL FROM RHODA [phone] WITH [facility] WHO WOULD LIKE PAPER WORK ONCE SHE COMES TO VISIT PT, IN ABOUT 30 MINUTES. DOCUMENTATION PLACED IN CHART AND INFORMATION GIVEN TO JOSE MCFARLANE CHARGE AND PT'S NURSE.
[2017-08-01 17:32] VITALS: BP 150/70
[2017-08-01] MEDS ORDERED: MORPHINE SULFATE ONE (21:59)
[2017-08-01] MEDS ORDERED: MORPHINE SULFATE IV PRN ×2 (22:00)
[2017-08-01] MEDS ORDERED: TYLENOL RC PRN (22:00)
[2017-08-01] MEDS ORDERED: BISAC-EVAC RC PRN (22:00)
[2017-08-01] MEDS ORDERED: MORPHINE SULFATE IV SCH (22:00)
[2017-08-01] MEDS ORDERED: TRANSDERM-SCOP TD PRN (22:00)
[2017-08-01] MEDS ORDERED: ATIVAN IV PRN (22:00)
[2017-08-01 22:22] VITALS: BP 145/81
[2017-08-02] MEDS ORDERED: ATIVAN IV SCH
[2017-08-02] MEDS ORDERED: SYNTHROID PO SCH (06:30)
== END 2017-08-01 22:13 | disposition hospice, home (50) | DRG 884 ==
LOC: MS 14:00
PROVIDERS: ADMIT Pediatrics; ATTEND Pediatrics
DX: F03.91 Unspecified dementia, unspecified severity, with behavioral disturbance (principal); E46 Unspecified protein-calorie malnutrition; E03.9 Hypothyroidism, unspecified; F29 Unspecified psychosis not due to a substance or known physiological condition; F32.9 Major depressive disorder, single episode, unspecified; H91.90 Unspecified hearing loss, unspecified ear; Z88.0 Allergy status to penicillin; Z88.2 Allergy status to sulfonamides; Z79.899 Other long term (current) drug therapy
CPT/HCPCS: J2060; J2270

== ENCOUNTER 2017-08-01 22:15 | Inpatient (IN) | payer BC, MEDICARE ==
[~2017-08-01] VITALS: Ht 172.7 cm; Wt 51.3 kg
[2017-08-01 22:30] VITALS: BP 145/81
[2017-08-01] MEDS ORDERED: MORPHINE SULFATE IV PRN (22:30)
[2017-08-01] MEDS ORDERED: TRANSDERM-SCOP TD PRN (22:30)
[2017-08-01] MEDS ORDERED: TYLENOL RC PRN (22:30)
[2017-08-01] MEDS ORDERED: LORAZEPAM IV PRN (22:30)
[2017-08-01] MEDS ORDERED: BISAC-EVAC RC PRN (23:00)
[2017-08-01] MEDS ORDERED: NS FLUSH IV PRN (23:00)
[2017-08-02] MEDS ORDERED: LORAZEPAM IV SCH
[2017-08-02] MEDS ORDERED: ATIVAN ONE (00:02)
[2017-08-02] MEDS ORDERED: MORPHINE SULFATE IV SCH (02:00)
[2017-08-02] MEDS ORDERED: ATIVAN PO PRN (03:00)
[2017-08-02] MEDS: ATIVAN PO SCH ×6 (04:06→23:33)
[2017-08-02 07:00] VITALS: BP 121/85
[2017-08-02] MEDS ORDERED: MORPHINE SULFATE PO PRN ×2 (11:30→12:30)
[2017-08-02] MEDS ORDERED: MORPHINE SULFATE PO SCH (12:00)
[2017-08-02] MEDS: MORPHINE SULFATE PO SCH ×3 (13:48→23:28)
[2017-08-02 19:00] VITALS: BP 130/75
--- NOTE | 2017-08-02 19:38 | HPH ---
ADMIT DATE: 08/02/2017 Admitted to Hospice Care. HISTORY OF PRESENT ILLNESS: Admit note is as follows: The patient is an 81-year-old female who was initially admitted to [facility] for psychosis and depression with her dementia with behavioral disturbances. She declined in the [facility] to the point where she quit eating and was not looking good. So, she was transferred up to Med/Surg where I went ahead and gave her some IV medications to help her with pain and anxiety. We consulted [facility] and they have agreed to accept her into their hospice care. So, she is being admitted to [facility] currently. We will continue medications for comfort care and see how she will do in the next 24-48 hours. Wendy Isbell MD DR: SHARI/maritza JOB# [id number]
[2017-08-03] MEDS: ATIVAN PO SCH ×5 (03:38→19:57)
[2017-08-03] MEDS: MORPHINE SULFATE PO SCH ×6 (03:43→23:57)
[2017-08-03 08:15] VITALS: BP 86/53
[2017-08-03 19:25] VITALS: BP 132/85
--- NOTE | 2017-08-03 20:49 | DSH ---
DATE OF DISCHARGE: 08/03/2017 DATE OF ADMISSION FROM [facility] TO MED/SUR08/01/2017. DATE OF ADMISSION TO HOSPICE CARE: 08/02/2017. DISPOSITION: Discharged to [facility] in [place]. ADMITTING DIAGNOSES: 1. Advanced dementia with behavioral disturbances. 2. Malnutrition secondary to poor p.o. intake. DISCHARGE DIAGNOSES: 1. Advanced dementia with behavioral disturbances. 2. Malnutrition secondary to poor p.o. intake. HOSPITAL COURSE: The patient is an 81-year-old female who was initially admitted to [facility] for worsening dementia with behavioral disturbances and depression. In the [facility], she refused to eat and take p.o. intake and her clinical condition was steadily declining. Family was notified and they had placed her under a DO NOT RESUSCITATE order and at that time Psychiatry had really no more further input in her case due to the fact that she was not taking any p.o. intake. So, she was transferred to [facility] where we put an IV in her and started to give her medications to help calm her mood. I gave her some morphine for pain and some Ativan to help her remain calm. Hospice was consulted and they agreed to take over and at this time they are sending her to [facility] in [place] for continued hospice care for her advanced dementia. So, she will be transferred there today. The Hospice is [facility]. Wendy Isbell MD DR: SHARI/maritza JOB# [id number]
[2017-08-04] MEDS: MORPHINE SULFATE PO SCH ×3 (04:23→12:00)
[2017-08-04] MEDS: ATIVAN PO SCH ×4 (04:29→12:00)
[2017-08-04 08:42] VITALS: BP 148/75
[2017-08-04] MEDS ORDERED: MORPHINE SULFATE SL STA (11:36)
[2017-08-04] MEDS ORDERED: ATIVAN PO STA (11:36)
[2017-08-04 12:00] VITALS: BP 148/75
--- NOTE | 2017-08-04 20:01 | DSH ---
DATE OF DISCHARGE: 08/04/2017 Admitted to Med/Surg. DISPOSITION: Discharged to [facility] in [place]. ADMITTING DIAGNOSES: Advanced dementia with behavioral disturbances and malnutrition secondary to poor p.o. intake. DISCHARGE DIAGNOSES: Advanced dementia with poor p.o. intake and malnutrition. HOSPITAL COURSE: The patient is an 81-year-old female who was initially admitted to [facility] for her underlying dementia with behavioral disturbances. She had steadily declined on a daily basis in [facility] to the point where she quit eating and drinking, and was becoming less responsive. Family was notified and made her DNR and she was eventually transferred out of the [facility] onto the medical floor where we put an IV in her and gave her comfort measures with morphine and Ativan per family's wishes. Hospice was consulted and [facility] did accept her. At this time, we are just giving her comfort care. She will be discharged to [facility] under [facility] for comfort care measures and end of life measures with her advanced dementia. Wendy Isbell MD DR: SHARI/maritza JOB# [id number]
== END 2017-08-04 12:10 | disposition hospice, inpatient (51) | DRG 884 ==
LOC: MS 22:15 → EEVIPCON 22:15
PROVIDERS: ADMIT Pediatrics; ATTEND Pediatrics
DX: F03.91 Unspecified dementia, unspecified severity, with behavioral disturbance (principal); E46 Unspecified protein-calorie malnutrition; Z68.1 Body mass index [BMI] 19.9 or less, adult; F32.9 Major depressive disorder, single episode, unspecified; F41.9 Anxiety disorder, unspecified; Z66 Do not resuscitate
CPT/HCPCS: J2060; J2270